=== PATIENT | male | born 1970 | race Caucasian/White ===

== ENCOUNTER 2023-04-29 13:35 | Emergency (ER) | payer BC, SELFPAY ==
[2023-04-29 13:50] VITALS: BP 139/86; PULSE 57; RESP 16; TEMP 36.6; O2SAT 98
--- NOTE | 2023-04-29 13:52 | ED.GENADULT ---
HPI - General Adult General Chief complaint: Dizziness Stated complaint: dizziness Time Seen by Provider: 04/29/23 14:00 Mode of arrival: ambulatory Limitations: no limitations History of Present Illness HPI narrative: 52-year-old male presents with concern for dizziness episodes. He reports symptoms or worsen when he sits up in bed, turns his head or bends over. He reports this happened to him before and it lasted a couple weeks, he saw his primary doctor at that time was diagnosed with vertigo. Reports he is concerned because he has a family history of brain cancer. He denies weakness in any extremity, difficulty speaking, difficulty swallowing, headache. Denies vomiting or nausea. He denies taking any medications for the symptoms. Reports he flies often for work MD complaint: Dizziness Related Data Allergies Allergy/AdvReac Type Severity Reaction Status Date / Time No Known Allergies Allergy Verified 04/29/23 13:47 Review of Systems Review of Systems: CONSTITUTIONAL: Denies malaise, chills, sweats, or fever. EYES: Denies visual changes ENT: Denies otalgia CARDIOVASCULAR: Denies chest pain, palpitations, or edema. RESPIRATORY: Denies cough or dyspnea. GASTROINTESTINAL: Denies nausea, vomiting MUSCULOSKELETAL: Denies weakness in any extremity NEUROLOGIC: Denies numbness, weakness, or headache. Reports intermittent dizziness All systems reviewed & are unremarkable except as noted in HPI and below PMFSH Past Medical History Medical History BMI 29.0-29.9,adult BMI greater than 30 Family History Family History Father Hypertension Family history of lung cancer Family history of malignant neoplasm of brain Family history of malignant neoplasm Mother Family history of diabetes mellitus in first degree relative Diabetes mellitus Thyroid activity decreased Grandparent Family history of heart disease in male family member before age 55 Sibling Diabetes mellitus COVID-19 Hypertension Other Family history of arthritis Social History Social History Smoking status: Never smoker Smokeless tobacco user: chewing tobacco Second hand tobacco smoke exposure: No Alcohol intake: current Substance use: never Substance use type: does not use Lack of Transportation: No Lack of Food: Never True Current Housing: I Have Housing Concerned About Future Housing: No Difficulty Paying Gas/Electric Bills: No Difficulty Paying for Meds: No Currently Unemployed: No Education: Master's Degree or Higher Living arrangements: with family Occupation/Education: occupation 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 There is no relevant family history pertinent to the presenting complaint Exam Narrative: GENERAL: Well-appearing, well-nourished, and in no acute distress. HEAD: Normocephalic, atraumatic. EYES: PERRLA, sclera clear, and EOMI. No nystagmus. ENT: Nares clear, turbinates pink, no rhinorrhea or epistaxis. Mucous membranes moist. TM pearly wilson with sharp light reflex bilaterally; no tragal tenderness. Oropharynx without erythema or lesions. Tonsils not enlarged and without exudate. NECK: Supple. No lymphadenopathy. CHEST: No respiratory distress. Speaks in full sentences. HEART: Regular rate and rhythm. EXTREMITIES: Normal range of motion. No edema. Normal strength and sensation. SKIN: Warm, dry, no visible rash. NEURO: Alert and oriented x3. No focal deficits. Cranial nerves II through XII grossly intact. Skye-Hallpike test positive on the left PSYCH: Normal mood and affect Course Course Emergency Course: Patient
== END 2023-04-29 14:17 | disposition home or self-care (01) ==
PROVIDERS: Emergency Provider Nurse Practitioner; PCP Family Medicine
DX: R42 Dizziness and giddiness (principal)
CPT/HCPCS: 99211; G0463

== ENCOUNTER 2024-04-22 16:48 | Emergency (ER) | payer BC, SELFPAY ==
--- NOTE | 2024-04-22 16:50 | ED.URI ---
HPI - URI/Sore Throat General Chief Complaint: Upper Respiratory Infection Stated Complaint: COVID+ home test today Time Seen by Provider: 04/22/24 16:49 Source: patient Mode of arrival: ambulatory Limitations: no limitations History of Present Illness HPI Narrative: Lauro is a 53-year-old male patient presenting to the clinic today with complaints of cough since yesterday. He reports he tested positive for COVID 45 minutes prior to coming into the clinic today. He is requesting vacation for COVID. History of HTN, Hypercholesterolemia, and hypothyroidism. Related Data Allergies Allergy/AdvReac Type Severity Reaction Status Date / Time No Known Allergies Allergy Verified 04/22/24 16:58 Review of Systems Review of Systems: Pertinent positives per HPI. Patient denies any fever, chills, rash, headache, visual changes, dizziness, runny nose, sore throat, shortness of breath, chest pain, palpitations, nausea, vomiting, diarrhea, constipation, abdominal pain, or any urinary issues. [facility] Past Medical History Medical History (Updated 04/22/24 @ 17:[address] APRN) BMI 28.0-28.9,adult BMI 29.0-29.9,adult BMI greater than 30 Family History Family History Father Hypertension Family history of lung cancer Family history of malignant neoplasm of brain Family history of malignant neoplasm Mother Family history of diabetes mellitus in first degree relative Diabetes mellitus Thyroid activity decreased Grandparent Family history of heart disease in male family member before age 55 Sibling Diabetes mellitus COVID-19 Hypertension Other Family history of arthritis Social History Social History Smoking status: Never smoker Smokeless tobacco user: chewing tobacco Second hand tobacco smoke exposure: No Alcohol intake: current Substance use: never Substance use type: does not use Lack of Transportation: No Lack of Food: Never True Current Housing: I Have Housing Concerned About Future Housing: No Difficulty Paying Gas/Electric Bills: No Difficulty Paying for Meds: No Currently Unemployed: No Education: Master's Degree or Higher Living arrangements: with family Occupation/Education: occupation 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 There is no relevant family history pertinent to the patient complaint. Exam Narrative: General: Well-developed, well nourished, in no apparent distress Head: Normocephalic, atraumatic Eyes: Pupils equally round and reactive to light bilaterally, EOM intact, sclera and conjunctive clear, no discharge, lids normal Ears: TMs intact and clear, ear canals clear, no drainage, grossly hearing normal. Nose: Nares patent, no discharge, no inflammation, no sinus tenderness. Mouth: Oropharynx without lesions or masses, good dentition, MMM. Neck: Supple, trachea midline, no enlargement of anterior or posterior cervical nodes, no thyroid masses or goiter palpable. Cardio: Regular rate and rhythm, s1 and s2 normal, no murmur appreciated. Resp: Clear to auscultation bilaterally anteriorly and posteriorly, no rhonchi, rales, wheezing or rubs Course Course Emergency Course: Portions of this record may have been created with voice recognition software. Level of Care: Express Care Visit Vital Signs Vital signs: Vital Signs Temperature 37.2 C 04/22/24 17:00 Pulse Rate 70 04/22/24 17:00 Respiratory Rate 16 04/22/24 17:00 Blood Pressure 123/78 04/22/24 17:00 Pulse Oximetry 97 04/22/24 17:00 Oxygen Delivery Room Air 04/22/24 17:00 Temperature 37.2 C 04/22/24 17:00 Pulse Rate
[2024-04-22 17:00] VITALS: BP 123/78; PULSE 70; RESP 16; TEMP 37.2; O2SAT 97
== END 2024-04-22 17:10 | disposition home or self-care (01) ==
PROVIDERS: Emergency Provider Nurse Practitioner Family; PCP Family Medicine
DX: U07.1 COVID-19 (principal); I10 Essential (primary) hypertension; E78.00 Pure hypercholesterolemia, unspecified; E03.9 Hypothyroidism, unspecified
CPT/HCPCS: 99211; G0463